=== PATIENT | female | born 1985 | race Caucasian/White ===

== ENCOUNTER 2017-01-13 11:56 | Emergency (ER) | payer OTHER ==
[2017-01-13 17:44] VITALS: BP 103/65; PULSE 100; RESP 18; TEMP 97.7
--- NOTE | 2017-01-13 21:48 | OBHP ---
Datetime: 01/13/2017 12:34 IP Adm Impression: , intrauterine IP Chief Complaint Other: NST IP Admit Plan: Discharge home Admit Comment, IP Provider: Patient is a 31 year old at 35w4d MARICARMEN 02/13/17 by LMP that is c onsistent with 12w6d US presents to L + D for NST. Patient is doing well, offers no complaints at thi s time. Endorses +FM, denies CTX, LOF, VB. Patient goes to [facility] [place] for care. Issues: Low AMY-A Previous C/S x 1 OBHx: 1. 2006 PLTCD 2/2 macrosomia, M , 9lbs 12oz, no complications 2. 2015 SAB 3. Current [employer] Hx: LMP 05/09/16 [facility]: //5 days Denies hx of abnormal pap smear Denies hx of STI, fibroids, ovarian cysts Allergies: NKDA Medications: PNV Medical Hx: denies Surgical Hx: C/S x 1 Social Hx: Denies alcohol, tobacco, drug use; lives with boyfriend and son; not employed Family Hx: Denies A/P: 31 year old at 35w4d presents for NST for Low AMY-A 1. Stable, afebrile 2. NST reactive 3. BPP on 01/08/17 was 8/8 4. Will discharge patient home, patient to follow up with clinic as scheduled 5. Pre-term labor precautions given 6. Plan d/w attending Daisy Saini DO PGY-1 Patient examined agree with resident exam, assessment and plan [place] Pelvic Type - PN: Adequate Extremities - PN: Normal Abdomen - PN: Normal Back - PN: Normal Lungs - PN: Normal Heart - PN: Normal Neurologic - PN: Normal General - PN: Normal Presentation-Admit: Vertex Contraction Comments Provider: none Comments, ACOG Physical Exam: VSS Gen: AAOx3 Abd: Soft, gravid Ext: No clubbing, cyanosis, edema; no calf tenderness EFM: 130, moderate variability, + accels, - decels TOCO: irritability EGA AdmitDate IP: 35.4 Vital Signs Provider: Reviewed; Within Normal Limits IP Chief Complaint: Other FHR Category Provider Fetus A: Category I Genitourinary Exam: Normal DTRs - PN: Normal
== END 2017-01-13 13:41 | disposition home or self-care (01) ==
LOC: C.EROB 11:56
DX: Z36.89 Encounter for other specified antenatal screening (principal)

== ENCOUNTER 2017-02-06 06:42 | Inpatient (IN) | payer MEDICAID ==
[2017-02-06] MEDS ORDERED: Lactated Ringer's 1,000 ML IV SCH (07:00)
[2017-02-06 07:21] LABS: BASO % 0.5 % (0.0-2.0); EOS # 0.1 K/uL (0.0-0.7); HEMATOCRIT 35.9 % (34.0-47.0); LYMPH # 1.9 K/uL (1.0-4.3); MEAN CORPUSCULAR HEMOGLOBIN 29.3 pg (27.0-31.0); MEAN PLATELET VOLUME 9.6 fL (7.2-11.7); MONO # 0.7 K/uL (0.0-0.8); MONO % 8.8 % (0.0-10.0); NRBC % 0.2 % (0.0-2.0); RED CELL DISTRIBUTION WIDTH 14.9 % (11.5-14.5); WHITE BLOOD COUNT 8.4 K/uL (4.8-10.8)
[2017-02-06] MEDS ORDERED: Sodium Citrate/Citric Acid 15 ml Sol ONE (07:29)
[2017-02-06] MEDS ORDERED: cefOXitin IV 2 gm in Dextrose 2 GM/50 ML BAG IVPB ONE (07:38)
[2017-02-06] MEDS ORDERED: Oxytocin 20 units in LR 2,000 ML IV ONE (07:38)
[2017-02-06] MEDS ORDERED: Morphine 1 mg/ml preservative-free Inj(Duramorph) ONE (08:02)
[2017-02-06 08:07] LABS: RBC URINE 4 /hpf (0-3); URINE BACTERIA MOD (<OCC); URINE BILIRUBIN NEGATIVE (NEGATIVE); URINE BLOOD NEGATIVE (NEGATIVE); URINE COLOR Yellow (YELLOW); URINE GLUCOSE (UA) NORMAL (Normal); URINE KETONE NEGATIVE (NEGATIVE); URINE LEUKOCYTE ESTERASE 2+ Leu/uL (Negative); URINE PROTEIN NEGATIVE (NEGATIVE); URINE UROBILINOGEN NORMAL mg/dL (0.2-1.0); WBC URINE 15 /hpf (0-5)
[2017-02-06] MEDS: cefOXitin IV 2 gm in Dextrose 2 GM/50 ML BAG IVPB SCH ×2 (08:07→19:00)
[2017-02-06 08:19] LABS: ALKALINE PHOSPHATASE 172 U/L (38-126); ALT/SGPT 33 U/L (9-52); AST/SGOT 32 U/L (14-36); BILIRUBIN,TOTAL 0.7 mg/dL (0.2-1.3); BLOOD UREA NITROGEN 10 mg/dL (7-17); CALCIUM 8.2 mg/dl (8.6-10.4); CARBON DIOXIDE 20 mmol/L (22-30); CHLORIDE 103 mmol/L (98-107); GFR AFRICAN-AMERICAN > 60; GLUCOSE,RANDOM 70 mg/dL (65-105); POTASSIUM 3.8 mmol/L (3.6-5.2); SODIUM 131 mmol/L (132-148); TOTAL PROTEIN 6.2 g/dL (6.3-8.3)
[2017-02-06 08:22] LABS: ALB/GLOB RATIO 1.2 (1.0-2.1)
--- NOTE | 2017-02-06 10:45 | PCM.SURG1 ---
Surgeon's Initial Post Op Note - Surgeon's Notes Surgeon: Ursula Rhodes MD Nail Machine Operator: Fernie Osuna MD; 2nd Ass't: Roxie Gnosalez DO, PGY-1 Type of Anesthesia: Spinal Anesthesia Administered By: Dino Rey MD Pre-Operative Diagnosis: 39 weeks, previous section; previous macrosomic infant Operative Findings: Live female , ROT, loose nuchal cord x 1, weight 7lb 15 oz, 's 9/9. Mild uterine atony. Normal uterus; normal fallopian tubes and ovaries bilaterally. Moderately dense adhesion anteriorly from vesicouterine reflection to anterior abdominal wall. Post-Operative Diagnosis: Same Operation Performed: Repeat transverse lower uterine segment section; lysis of adhesion Specimen/Specimens Removed: None Estimated Blood Loss: EBL {In ML}: 700 (U.O. 400 mL, clear; IVFs 2,000 mL) Blood Products Given: N/A Drains Used: No Drains Post-Op Condition: Good (40 Units pitocin, total; 250 micrograms hemabate) Date of Surgery/Procedure: 02/06/17 Time of Surgery/Procedure: 10:35
[2017-02-06] MEDS: Simethicone 80 mg Chewtab PO SCH ×4 (12:30→22:42)
[2017-02-06] MEDS ORDERED: cefOXitin IV 2 gm in Dextrose 2 GM/50 ML BAG IVPB SCH (15:30)
--- NOTE | 2017-02-06 19:32 | OP ---
PROCEDURE DATE: 02/06/2017 SURGEON: Ursula Rhodes MD DIGITAL FORENSICS EXAMINER: Fernie Osuna MD SECOND GERICARE AIDE: Roxie Gonsalez DO, PGY-1 TYPE OF ANESTHESIA: Spinal. ANESTHESIOLOGIST: Dino Rey MD PREOPERATIVE DIAGNOSES: A 39 weeks' gestation, previous Caesarean section, previous macrosomic . POSTOPERATIVE DIAGNOSES: A 39 weeks' gestation, previous Caesarean section, previous macrosomic infant. Abdominal adhesion OPERATIVE FINDINGS: Live female from the right occipital transverse position. A loose nuchal cord x1. Weight 7 pounds 15 ounces. Apgars were 9 and 9 at 1 and 5 minutes respectively. Mild uterine atony was noted; otherwise normal uterus and normal fallopian tubes and ovaries bilaterally. There was a moderately dense film of adhesion anteriorly from the area of vesicouterine reflection to the anterior abdominal wall. OPERATION PERFORMED: Repeat transverse lower uterine segment Caesarean section. Lysis of adhesion SPECIMENS: None. ESTIMATED BLOOD LOSS: 700 mL. URINE OUTPUT: 400 mL of clear urine. INTRAVENOUS FLUIDS: 2000 mL. BLOOD PRODUCTS: None. OTHER PRODUCTS: Total of 40 units of Pitocin in the IV fluids as well as 250 mcg of Hemabate. COMPLICATIONS: None. DESCRIPTION OF PROCEDURE: The patient was taken to the operating room after having obtained informed consent for the anticipated procedure. This included a discussion of possible risks and complications including, but not limited to infection requiring continued antibiotics, hemorrhage requiring blood transfusion, repair of any damage to internal organs, possible Caesarean hysterectomy. The patient offered no questions and consents were signed, dated, witnessed and placed in the chart. An indwelling Wyatt catheter had been inserted under sterile conditions, and the patient received Mefoxin 2 grams prior to being escorted to the operating room. Once in the operating room, the patient was placed in a sitting position on the operating room table. Spinal anesthesia was administered without incident. She was immediately repositioned to a supine position. The abdomen was prepped, and she was subsequently draped in usual sterile fashion. After assuring an adequate level of anesthesia using a scalpel, a Pfannenstiel incision was made through the previous scar. The incision was carried down through the subcutaneous tissue using a Bovie electrocautery. The fascia was identified, it was nicked in the midline and the incision was extended bilaterally using the Bovie electrocautery. The rectus muscle was dissected off the overlying fascia. The rectus muscle was then also in the midline using sharp dissection, and the abdominal cavity was entered via sharp dissection. Noted was a moderately dense band of adhesion anteriorly from the area of the lower uterine segment to the anterior abdominal wall. Lysis of adhesion was performed by double clamping the bands securing it with 3 ties of #0 chromic. The bladder flap was then created. The uterine incision was made on the lower uterine segment in a transverse manner. Amniotomy was performed and a moderate amount of clear amniotic fluid was noted. Atraumatic delivery of the infant ensued with the findings as above. A nuchal cord was noted; it was loose and was easily reduced over the 's head. On the operative field, the umbilical cord was doubly clamped and cut as the was handed off the table to the dry box operator in attendance. The placenta was removed by manual extraction, it was grossly normal with 3 vessels present in the cord. The uterus was exteriorized for closure. It was noted to be extremely boggy. The decision was made to add a total of 40 units of Pitocin and to administer Hemabate IM x1. This was done and the uterus was noted to be contracted and firm. Closure of the uterine incision was done in 2 layers using 1-0 Vicryl. The first layer was in a running interlocking fashion and the second layer was in a horizontal imbricating fashion. Attention was then directed posteriorly, and the findings of the abdominal viscera were noted as above. To further assure hemostasis, Surgicel was placed along the lower uterine incision. The bladder flap was re-approximated using 2-0 chromic in a running fashion. The uterus was returned to the abdominal cavity and the paracolic gutters were cleared of all debris. The parietal peritoneum was re-approximated using 3-0 chromic in a running fashion, and the muscle was re-approximated in the running fashion again using 3-0 chromic. The fascia was re-approximated using 0-Vicryl in a running fashion in two halves. The subcutaneous tissue was re-approximated using 0 plain gut in a running fashion, and the skin was re-approximated using 4-0 Monocryl in a subcuticular manner. Steri-Strips were applied. A pressure dressing was applied, and the uterus was evacuated of all additional clots and debris. The uterus was firm and contracted. Dr. Fernie Osuna was present throughout the entire procedure. He was present from beginning to end. His presence was necessary with his surgical expertise for: 1. Assuring adequate visualization of the operative field at all times. 2. The safe and atraumatic delivery of the baby. 3. Assuring adequate hemostasis throughout. Ursula MD Carmelo MTDCristina
[2017-02-07] MEDS: cefOXitin IV 2 gm in Dextrose 2 GM/50 ML BAG IVPB SCH ×3 (02:55→18:16)
[2017-02-07] MEDS: Oxycodone/Acetaminophen 5/325 mg Tab PO PRN ×2 (07:12→12:35)
--- NOTE | 2017-02-07 07:51 | OBPPN ---
Datetime: 02/07/2017 07:07 PP Pain Prov: Within normal limits PP Nausea Prov: Denies PP Flatus Prov: Yes PP BM Prov: No PP Breasts Prov: Normal PP Heart Prov: Normal PP Lungs Prov: Normal PP Abdomen/Uterus Prov: Normal PP Lochia Prov: Normal PP Vulva/Perineum Prov: Normal PP CVA Tenderness Prov: Normal PP Extremities Prov: Normal PP C/S Incision Prov: Normal PP Progress Prov: Normal PP Comments Phys Exam Prov: Awake, Alert and Oriented x3 Cardiac: S1, S2, RRR Lungs: Clear lung sounds bilaterally Abdomen: appropriately tender, incision is clean, dry and intact, fundal height one finger below t he abdomen. Lower Extremities: Non-tender, non-swollen PP Impression Prov: Normal progression PP Plan Prov: Continue present management PP Progress Note Prov: Patient was seen and examined at bedside in the AM. Patient states her pain is currently a 6/10 and she would like pain medication. She states she has urinated on her own. She is passing flatus. She denies nausea, vomiting or dysuria. She states she is breast feeding but is having some difficulty with the baby latching. Vitals: B/P: 97/57; HR 75; Temp: 99.0 H/H (02/06): 12.2/35.9 Physical Exam: Awake, Alert and Oriented x3 Cardiac: S1, S2, RRR Lungs: Clear lung sounds bilaterally Abdomen: appropriately tender, incision is clean, dry and intact, fundal height one finger below t he abdomen. Lower Extremities: Non-tender, non-swollen A/P: 31 year old s/p 02/06/17 due to previous macrosomic 1.) Continue pain management with Motrin and Percocet 2.) Advance Diet 3.) Encourage ambulation 4.) f/u CBC 5.) Encourage breast feeding 6.) Continue Cefoxitin - Monitor temperature Roxie Gonsalez DO PGY-1 OB attending Patient examined.agree with resident exam, assessment and plan Vital Signs Provider PP: Reviewed; Within Normal Limits
[2017-02-07 08:01] LABS: BASO % 0.2 % (0.0-2.0); EOS % 0.3 % (0.0-4.0); HEMATOCRIT 34.7 % (34.0-47.0); LYMPH # 1.3 K/uL (1.0-4.3); LYMPH % 8.6 % (20.0-40.0); MEAN CELL VOLUME 87.3 fL (81.0-99.0); MEAN CORPUSCULAR HEMOGLOBIN 28.6 pg (27.0-31.0); MEAN CORPUSCULAR HGB CONC 32.8 g/dL (33.0-37.0); MEAN PLATELET VOLUME 9.6 fL (7.2-11.7); MONO # 0.5 K/uL (0.0-0.8); MONO % 3.6 % (0.0-10.0); PLATELET COUNT 215 K/uL (130-400); WHITE BLOOD COUNT 15.2 K/uL (4.8-10.8)
[2017-02-07] MEDS: Simethicone 80 mg Chewtab PO SCH ×4 (09:22→21:35)
[2017-02-07 10:52] LABS: EOSINOPHIL 1 % (0-4); NEUTROPHIL 88 % (50-75); TOTAL CELLS COUNTED 100
[2017-02-08 08:49] VITALS: RESP 18
[2017-02-08] MEDS: Simethicone 80 mg Chewtab PO SCH ×4 (10:54→22:05)
[2017-02-08] MEDS: Oxycodone/Acetaminophen 5/325 mg Tab PO PRN ×3 (10:55→22:09)
--- NOTE | 2017-02-08 21:04 | OBPPN ---
Datetime: 02/08/2017 11:57 PP Pain Prov: Within normal limits PP Nausea Prov: Denies PP Flatus Prov: Yes PP BM Prov: No PP Heart Prov: Normal PP Lungs Prov: Normal PP Abdomen/Uterus Prov: Normal PP Lochia Prov: Normal PP Extremities Prov: Normal PP C/S Incision Prov: Normal PP Progress Prov: Normal PP Comments Phys Exam Prov: Abdomen: Soft, appropriately tender, Fundus is firm and below the umbili cus. Incision is clean, dry and intact. PP Impression Prov: Normal progression PP Plan Prov: Continue present management PP Progress Note Prov: Patient was seen and examined at bedside in the AM. Patient reports that she is doing well and has no complaints. Patient states that her pain is well-controlled. Patient is raman erating diet and ambulating. Patient admits to mild lochia, urinating without difficulty, passing fla tus. Patient denies fever, chills, nausea, bm, chest pain, palpitations, sob, dizzines and calf tende rness. Vitals: B/P: 100/61, HR: 80 and temp: 98.0 Labs: 8.4>12.2/35.9<233 15.2>11.4/34.7<215 Physical Exam: Gen: Awake, Alert and Oriented x3 Cardiac: S1, S2, RRR Lungs: Clear lung sounds bilaterally Abdomen: appropriately tender, incision is clean, dry and intact, fundal height one finger below t he umbilicus. Lower Extremities: Non-tender, non-swollen A/P: 31 year old s/p repeat 02/06/17 due to previous macrosomic infant and primary , POD#2 1.) Stable, Afebrile 2.) Continue pain management with Motrin and Percocet 3.) Encourage ambulation, hydration and incentive spirometer use 4.) Encourage breast feeding 5.) Continue routine post- care 6.) Anticipate discharge tomorrow 7.) Plans discussed with attending Ophelia Lynn DO, PGY-1 Patient examined.agree with resident exam, assessment and plan Vital Signs Provider PP: Reviewed; Within Normal Limits
[2017-02-09 09:53] VITALS: BP 105/66; PULSE 94; TEMP 97.3; O2SAT 100
[2017-02-09] MEDS: Simethicone 80 mg Chewtab PO SCH (10:46)
[2017-02-09] MEDS: Oxycodone/Acetaminophen 5/325 mg Tab PO PRN (10:49)
[2017-02-09] MEDS ORDERED: Influenza Vaccine 60 mcg/0.5 mL SYR (4YR UP) IM ONE (15:11)
== END 2017-02-09 12:50 | disposition home or self-care (01) | DRG 766 ==
LOC: C.4D 06:42 → C.4M 12:35
PROVIDERS: ADMIT Obstetrics & Gynecology; ATTEND Obstetrics & Gynecology
PROC: 10D00Z1 Extraction of Products of Conception, Low, Open Approach (ICD-10-PCS; principal; 2017-02-06)
DX: O34.211 Maternal care for low transverse scar from previous cesarean delivery (principal); O69.81X0 Labor and delivery complicated by cord around neck, without compression, not applicable or unspecified; O62.2 Other uterine inertia; Z3A.39 39 weeks gestation of pregnancy; Z37.0 Single live birth